=== PATIENT | female | born 1965 | race Caucasian/White ===

== ENCOUNTER → 2019-12-13 | Outpatient (CLI) | payer BC ==
--- NOTE | 2019-12-13 18:28 | Diagnostic Imaging Report ---
INDICATION: Nausea and vomiting as well as diarrhea. TIME OF EXAM: 6:18 PM COMPARISON: No prior studies are available for comparison. FINDINGS: There is some moderate gaseous distention to the colon. There are some air-fluid levels. Small bowel does not appear to be significantly dilated. No pathologic calcifications are seen. No definite free air is detected. IMPRESSION: Moderate gaseous distention to the colon with air-fluid levels. No other abnormalities detected. CT may be useful for further evaluation. Dictated by: Dictated on workstation # [id number]
== END ==
LOC: RAD FS 17:55
PROVIDERS: ATTEND Nurse Practitioner Family
DX: K52.9 Noninfective gastroenteritis and colitis, unspecified (principal); R14.0 Abdominal distension (gaseous)
CPT/HCPCS: 74019

== ENCOUNTER 2021-09-20 20:38 | Emergency (ER) | payer BC ==
--- OUTSIDE RECORDS SUMMARY | 2021-09-20 20:41 | XMS REPORT | Clinical Summary ---
Author Author [facility] Organization [facility] Address Unknown Phone Unavailable Care Team Providers Care Classification Analyst Name Role Phone PCP Unavailable Allergies Not on File Medications Not on file Active Problems Not on file Social History Date Tobacco Use Types Packs/Day Years Used Never Assessed Sex Assigned at Date Recorded Not on file Last Filed Vital Signs Not on file Plan of Treatment Health Maintenance Due Date Last Done Comments Td/Tdap# 1965 Cervical Cancer Screening 1988 via Pap Smear Zoster Vaccine# (1 of 2) 2017 Influenza Vaccine (#1) 2021 Pneumococcal Vaccine: Aged Out No longer eligib le based on patient's age to Pediatrics (0 to 5 Years) complete this topic and At-Risk Patients (6 to 64 Years) Results Not on filefrom Last 3 Months Advance Directives For more information, please contact: [phone] Patient Lease Attendant Explanation Type Date Recorded Advance Directives and Living Will Power of Industrial Designer
[2021-09-20] MEDS ORDERED: NS IV 1000 ML 1,000 ML IV STA (20:52)
[2021-09-20 21:08] LABS: BACTERIA,URINE TRACE /HPF; BILIRUBIN,URINE NEGATIVE (NEGATIVE); CLARITY,URINE CLEAR; COLOR,URINE STRAW; GLUCOSE, URINE (UA) NEGATIVE (NEGATIVE); KETONES,URINE NEGATIVE (NEGATIVE); LEUKOCYTE ESTERASE ,URINE NEGATIVE (NEGATIVE); NITRITE,URINE NEGATIVE (NEGATIVE); PH,URINE 6.5 (5-9); PROTEIN,URINE NEGATIVE (NEGATIVE); RBC,URINE 0-2 /HPF; WBC,URINE 0-2 /HPF
[2021-09-20 21:10] LABS: HEMATOCRIT 43 % (35-52); HEMOGLOBIN 14.1 g/dL (11.5-16.0); MEAN CORPUSCULAR HEMOGLOBIN 30 pg (25-34); WHITE BLOOD COUNT 7.6 10^3/uL (4.3-11.0)
[2021-09-20 21:11] LABS: BASOPHILS % (AUTO) 1 % (0-10); EOSINOPHILS # (AUTO) 0.2 10^3/uL (0.0-0.3); EOSINOPHILS % (AUTO) 2 % (0-10); LYMPHOCYTES # (AUTO) 3.4 X 10^3 (1.0-4.0); LYMPHOCYTES % (AUTO) 44 % (12-44); MEAN CORPUSCULAR HGB CONC 33 g/dL (32-36); MEAN CORPUSCULAR VOLUME 90 fL (80-99); MONOCYTES # (AUTO) 0.6 X 10^3 (0.0-1.0); MONOCYTES % (AUTO) 8 % (0-12); NEUTROPHILS # (AUTO) 3.4 X 10^3 (1.8-7.8); NEUTROPHILS % (AUTO) 45 % (42-75); PLATELET COUNT 315 10^3/uL (130-400)
--- NOTE | 2021-09-20 21:13 | ED General ---
General Chief Complaint: General Problems/Pain Stated Complaint: GENERALLY UNWELL Source of Information: Patient, EMS History of Present Illness Date Seen by Provider: Sep 20, 2021 Time Seen by Provider: 20:39 Initial Comments 55-year-old female presenting with multiple vague complaints. She reported having recently had Covid at the beginning of the month of September. She states that her had it as well. They both have been to a wedding and been exposed there and shortly after attending the wedding they both started coming down with symptoms. He had tested positive first and then she tested positive. She was having primarily nasal congestion and cough symptoms initially. She did have antibody infusion on Thursday. She had been having some elevated blood pressures during this time with the Covid. She felt like she was thinking more clearly and doing better in the last 2 days. However this afternoon she started feeling like she had chills and could not get warm. She had her left index finger and middle finger that had turned white from the tip to the knuckle. This improved when she warmed up her hand. She had bundled up and his jacket and heavy clothes when she got home. She tried drinking hot tea and extra fluids to try and warm up as well. She started having "twitching" and spasms and both of her thighs and legs. She denies any calf pain or leg swelling. She had taken her blood pressure at home and reports that it was elevated in the 150s over 100 range. She became anxious and worried about this. She was on her way to the emergency department to be evaluated when she became more anxious and did not feel right so she pulled over to the side of the road and called 911. They transported her the rest the way to the ED. She does seem to have flight of ideas and rambles talking about things applying to her and his illness and then back to her own illness and then speaking of issues from a few weeks ago when she first had Covid and then going back to issues from today. Severity: Moderate Associated Systoms: No Chest Pain, No Cough, No Diaphoresis, No Fever/Chills; Headaches; No Loss of Appetite; Malaise; No Nausea/Vomiting, No Rash, No Seizure, No Shortness of Air, No Syncope, No Weakness Allergies and Home Medications Allergies Coded Allergies: iodine (Verified Allergy, Unknown, 09/20/21) Patient Home Medication List Home Medication List Reviewed: Yes Review of Systems Review of Systems Constitutional: No chills, No fever; malaise EENTM: No epistaxis, No nose congestion Respiratory: No cough, No short of breath Cardiovascular: No chest pain Gastrointestinal: No diarrhea, No nausea, No vomiting Genitourinary: No dysuria, No frequency Musculoskeletal: muscle cramps (She felt like her legs and thighs were "twitching" and having the muscles quivering in them. ) Skin: No rash Psychiatric/Neurological: Anxiety, Headache (mild); Denies Numbness, Denies Paresthesia; Tremors (muscles in thighs and legs twictching) Hematologic/Lymphatic: Denies Blood Clots, Denies Easy Bleeding, Denies Easy Bruising Past Etrlcrr-Vzpwxb-Mujvio Hx Patient Social History Tobacco Use?: No Use of E-Cig and/or Vaping dev: No Substance use?: No Alcohol Use?: No Pt feels they are or have been: No Past Medical History Respiratory: Yes (Covid Sep 2021) Cardiac: Yes Hypertension Neurological: No Genitourinary: No Gastrointestinal: No Musculoskeletal: No Endocrine: Yes (Sjogren's) HEENT: No Cancer: No Psychosocial: Yes Anxiety Physical Exam Vital Signs Vital Signs - First Documented 09/20/21 20:38 Temp 36.3 Pulse 86 Resp 18 B/P (MAP) 159/81 (107) Pulse Ox 100 O2 Delivery Room Air Capillary Refill : Height, Weight, BMI Height: '" Weight: lbs. oz. kg; BMI Method: General Appearance: Anxious, Obese HEENT: PERRL/EOMI, Normal ENT Inspection, Pharynx Normal Neck: Full Range of Motion, Normal Inspection, Non Tender, Supple Respiratory: Chest Non Tender, Lungs Clear, Normal Breath Sounds, No Accessory Muscle Use, No Respiratory Distress Cardiovascular: Normal Peripheral Pulses Gastrointestinal: Normal Bowel Sounds, No Pulsatile Mass, Non Tender, Soft Rectal: Deferred Back: No CVA Tenderness, No Vertebral Tenderness Extremity: Normal Capillary Refill, Normal Inspection, No Pedal Edema Neurologic/Psychiatric: Alert, Oriented x3, it auditor II-XII Norm as Tested, Other (anxious) Skin: Normal Color, Warm/Dry Progress/Results/Core Measures Suspected Sepsis SIRS Temperature: Pulse: Respiratory Rate: Laboratory Tests 09/20/21 20:55: White Blood Count 7.6 Blood Pressure / Mean: Laboratory Tests 09/20/21 20:55: Creatinine 0.70, Platelet Count 315, Total Bilirubin 0.2 Results/Orders Lab Results Laboratory Tests Test 09/20/21 18:56 09/20/21 20:55 Range/Units Urine Color STRAW Urine Clarity CLEAR Urine pH 6.5 5-9 Urine Specific [place] <=1.005 1.016-1.022 Urine Protein NEGATIVE NEGATIVE Urine Glucose (UA) NEGATIVE NEGATIVE Urine Ketones NEGATIVE NEGATIVE Urine Nitrite NEGATIVE NEGATIVE Urine Bilirubin NEGATIVE NEGATIVE Urine Urobilinogen 0.2 < = 1.0 MG/DL Urine Leukocyte Esterase NEGATIVE NEGATIVE Urine RBC (Auto) NEGATIVE NEGATIVE Urine RBC 0-2 /HPF Urine WBC 0-2 /HPF Urine Squamous Epithelial Cells 2-5 /HPF Urine Crystals NONE /LPF Urine Bacteria TRACE /HPF Urine Casts NONE /LPF Urine Mucus NEGATIVE /LPF Urine Culture Indicated NO White Blood Count 7.6 4.3-11.0 10^3/uL Red Blood Count 4.75 3.80-5.11 10^6/uL Hemoglobin 14.1 11.5-16.0 g/dL Hematocrit 43 35-52 % Mean Corpuscular Volume 90 80-99 fL Mean Corpuscular Hemoglobin 30 25-34 pg Mean Corpuscular Hemoglobin Concent 33 32-36 g/dL Red Cell Distribution Width 12.4 10.0-14.5 % Platelet Count 315 130-400 10^3/uL Mean Platelet Volume 11.0 9.0-12.2 fL Immature Granulocyte % (Auto) 0 % Neutrophils (%) (Auto) 45 42-75 % Lymphocytes (%) (Auto) 44 12-44 % Monocytes (%) (Auto) 8 0-12 % Eosinophils (%) (Auto) 2 0-10 % Basophils (%) (Auto) 1 0-10 % Neutrophils # (Auto) 3.4 1.8-7.8 X 10^3 Lymphocytes # (Auto) 3.4 1.0-4.0 X 10^3 Monocytes # (Auto) 0.6 0.0-1.0 X 10^3 Eosinophils # (Auto) 0.2 0.0-0.3 10^3/uL Basophils # (Auto) 0.0 0.0-0.1 10^3/uL Immature Granulocyte # (Auto) 0.0 0.0-0.1 10^3/uL Sodium Level 140 135-145 MMOL/L Potassium Level 3.4 L 3.6-5.0 MMOL/L Chloride Level 100 98-107 MMOL/L Carbon Dioxide Level 27 21-32 MMOL/L Anion Gap 13 5-14 MMOL/L Blood Urea Nitrogen 14 7-18 MG/DL Creatinine 0.70 0.60-1.30 MG/DL Estimat Glomerular Filtration Rate 88 BUN/Creatinine Ratio 20 Glucose Level 101 70-105 MG/DL Calcium Level 9.8 8.5-10.1 MG/DL Corrected Calcium 8.5-10.1 MG/DL Magnesium Level 2.1 1.6-2.4 MG/DL Total Bilirubin 0.2 0.1-1.0 MG/DL Aspartate Amino Transf (AST/SGOT) 24 5-34 U/L Alanine Aminotransferase (ALT/SGPT) 24 0-55 U/L Alkaline Phosphatase 85 40-136 U/L Total Protein 9.0 H 6.4-8.2 GM/DL Albumin 4.8 H 3.2-4.5 GM/DL My Orders Orders - SEUN MOCK MD Comprehensive Metabolic Panel (09/20/21 20:52) Ua Culture If Indicated (09/20/21 20:52) Ed Iv/Invasive Line Start (09/20/21 20:52) Cbc With Automated Diff (09/20/21 20:52) Magnesium (09/20/21 20:52) Ns Iv 1000 Ml (Sodium Chloride 0.9%) (09/20/21 20:52) Vital Signs/I&O 09/20/21 09/20/21 20:38 23:21 Temp 36.3 36.3 Pulse 86 79 Resp 18 18 B/P (MAP) 159/81 (107) 131/69 Pulse Ox 100 100 O2 Delivery Room Air Room Air 09/20/21 23:59 Intake Total 1000 ml Balance 1000 ml Capillary Refill : Progress Note #1: Progress Note Obtain basic labs and urinalysis. Give IV fluids for hydration. Progress Note #2: Progress Note Counseled patient and her daughter that testing did not demonstrate any acute significant abnormality other than mild hypokalemia. Her potassium came back at 3.4. Advised that this might be low enough that it was contributing to her symptoms. Have her try following a high potassium diet and check back with the clinic to establish (tu work on her symptoms. If she has further worsening symptoms or new problems seek medical care for repeat evaluation. Otherwise follow-up through the clinic for continued concerns Departure Impression Primary Impression: Muscle spasm of both lower legs Additional Impressions: Hypokalemia Elevated blood pressure reading Disposition: 01 HOME, SELF-CARE Condition: Stable Departure-Patient Inst. Decision time for Depature: 23:12 Referrals: MILTON HERNANDEZ MD (PCP/Family) Primary Care Physician Patient Instructions: Muscle Spasm ED, High Potassium Diet, Hypokalemia (DC) Add. Discharge Instructions: Try to increase your fluids to help with hydration. Use potassium rich roods to help with raising your potassium levels and see if that helps with your symptoms. Check back with clinic for continued problems and if not improving. If worsening or having new concerns you could return or seek medical care for repeat evaluation All discharge instructions reviewed with patient and/or family. Voiced understanding. SEUN MOCK MD Sep 20, 2021 21:13
[2021-09-20 21:26] LABS: ALANINE AMINOTRANSFERASE 24 U/L (0-55); ALBUMIN 4.8 GM/DL (3.2-4.5); ALKALINE PHOSPHATASE 85 U/L (40-136); BILIRUBIN,TOTAL 0.2 MG/DL (0.1-1.0); BUN/CREATININE RATIO 20; CALCIUM 9.8 MG/DL (8.5-10.1); CARBON DIOXIDE 27 MMOL/L (21-32); CHLORIDE 100 MMOL/L (98-107); GFR ESTIMATED 88; GLUCOSE 101 MG/DL (70-105); MAGNESIUM 2.1 MG/DL (1.6-2.4); POTASSIUM 3.4 MMOL/L (3.6-5.0); SODIUM 140 MMOL/L (135-145)
[2021-09-20 23:21] VITALS: BP 131/69
== END 2021-09-20 23:20 | disposition home or self-care (01) ==
LOC: EDUNIT# 20:38 → ER FS 20:39
DX: M62.838 Other muscle spasm (principal); E87.6 Hypokalemia; I10 Essential (primary) hypertension; E66.9 Obesity, unspecified
CPT/HCPCS: 36415; 80053; 81000; 83735; 85025